=== PATIENT | female | born 1950 | race Caucasian/White ===

== ENCOUNTER 2020-03-11 14:19 | Outpatient (CLI) | payer MEDICARE, BC, SELFPAY ==
--- NOTE | 2020-03-11 14:25 | ECG_ITS ---
Measurements Intervals [place] Rate: 68 P: 24 VA: 198 QRS: 52 QRSD: 106 T: 30 QT: 378 QTc: 402 Interpretive Statements SINUS RHYTHM DELAYED PRECORDIAL R/S TRANSITION BORDERLINE ECG Electronically Signed On 03-11-2020 14:43:49 CDT by Roderick Moe D.O.
[2020-03-11 15:22] LABS: Anion Gap 9 mmol/L (8-16); Blood Urea Nitrogen 17 mg/dL (7-17); Calcium 9.5 mg/dL (8.4-10.2); Carbon Dioxide 26 mmol/L (22-30); Chloride 95 mmol/L (98-107); Estimated Glomerular Filt Rate > 60; Glucose 139 mg/dL (65-105); Sodium 130 mmol/L (137-145)
== END 2020-03-11 14:20 | disposition home or self-care (01) ==
LOC: ANHSURGERY 14:25
PROVIDERS: Anesthesiology; PCP Internal Medicine; Visit Provider Surgery Plastic and Reconstructive Surgery
DX: Z01.818 Encounter for other preprocedural examination (principal); E78.00 Pure hypercholesterolemia, unspecified; Z79.899 Other long term (current) drug therapy
CPT/HCPCS: 36415; 80048; 93005

== ENCOUNTER 2020-03-13 00:54 | Outpatient (CLI) | payer MEDICARE, BC, SELFPAY ==
[2020-03-13 18:41] LABS: SARS-CoV-2 RNA PCR Negative
== END 2020-03-13 00:55 | disposition home or self-care (01) ==
LOC: ANHCOVIDDT 00:54
PROVIDERS: PCP Internal Medicine; Visit Provider Surgery Plastic and Reconstructive Surgery
DX: Z01.812 Encounter for preprocedural laboratory examination (principal); Z20.828 Contact with and (suspected) exposure to other viral communicable diseases
CPT/HCPCS: 87635; C9803; U0003

== ENCOUNTER 2020-03-15 01:22 | Day surgery (SDC) | payer MEDICARE, BC, SELFPAY ==
[2020-03-05 14:26] VITALS: BMI 31.6
[2020-03-15] VITALS (7 sets, daily range): BP systolic 91–136; BP diastolic 46–66; PULSE 62–77; RESP 14–21; TEMP 36.3–36.5; O2SAT 96–100
[2020-03-15] MEDS: LACTATED RINGERS 1,000 ML 30 ML IV CONT ×2 (12:00→15:49)
--- NOTE | 2020-03-15 12:35 | WPDANESEPPF ---
Anes - Initial Pre Proc Eval Procedure: Operation Date: 03/15/20 13:30 Proposed Procedures p Excision Mass Right Upper Arm - Elie Anthony MD Date/Time: 03/15/20 12:35 Surgeon: Elie Anthony MD Pre Op Diagnosis: mass right upper arm Patient Data Age: 69 Gender: F Height: 5 ft 4 in Weight: 84.4 kg Last Vital Signs Temp 36.5 C 03/15/20 12:00 Pulse 64 03/15/20 12:00 Resp 18 03/15/20 12:00 BP 136/66 03/15/20 12:00 Pulse Ox 98 03/15/20 12:00 Allergies Allergy/AdvReac Type Severity Reaction Status Date / Time codeine Allergy Anaphylaxis Verified 03/11/20 15:32 morphine Allergy Anaphylaxis Verified 03/11/20 15:32 Penicillins Allergy Anaphylaxis Verified 03/11/20 15:32 Home Medications Medication Instructions Recorded Confirmed Type lansoprazole 30 mg capsule,delayed 30 mg PO DAILY cap 02/19/20 03/05/20 History release lisinopril 20 1 tablet PO DAILY tablet 02/19/20 03/05/20 History mg-hydrochlorothiazide 12.5 mg tablet metoprolol succinate 50 mg 50 tablet PO DAILY 02/19/20 03/05/20 History tablet,extended release 24 hr simvastatin 40 mg tablet 40 mg PO HS tablet 02/19/20 03/05/20 History docusate sodium 100 mg capsule 100 mg PO BID 7 Days #14 cap 03/11/20 Rx ondansetron HCl 4 mg tablet 4 mg PO Q6H PRN #30 tablet 03/11/20 Rx tramadol 50 mg tablet 50 mg PO Q6H PRN #15 tablet 03/13/20 03/13/20 Rx Laboratory Tests 03/15/20 11:53 Sodium Pending Potassium Pending Chloride Pending Carbon Dioxide Pending Anion Gap Pending BUN Pending Creatinine Pending Estim Creat Clear Calc Pending Estimated GFR Pending Glucose Pending Calcium Pending Patient hx anesthesia problems: none Family hx anesthesia problems: none PMFSH Past Medical History Medical History (Updated 03/15/20 @ 12:36 by Power Lilly MD) COPD (chronic obstructive pulmonary disease) GERD (gastroesophageal reflux disease) History of colon cancer 1999 Hyperlipidemia Hypertension WILBER (obstructive sleep apnea) Parathyroid disease surgery - 2002 Surgical History Surgical History History of cholecystectomy 1985 Social History Social History Smoking status: Current every day smoker Tobacco type: cigarettes Additional smoking assessment comments: 1PK/DAY/SINCE AGE 16 Alcohol intake: never Substance use: never Living arrangements: alone Spiritual care concerns: No Anes - Eval Final PreProcedure Day of Procedure 03/15/20 12:35 Patient weight: obese Heart: regular rate and rhythm Lungs: decreased breath sounds Airway: Mallampati scale class II Neurological: alert and oriented Last oral intake: >/= 8 hours ASA classification: III Emergent: no Anesthetic plan: proceed Anesthesia type and monitoring: general LMA and standard monitoring Informed Consent: The patient's anesthetic plan and its attendant risks and benefits were discussed with the patient/family/POA. Questions were solicited and answers provided to the satisfaction of the patient/family/POA.
[2020-03-15 12:37] LABS: Anion Gap 6 mmol/L (8-16); Blood Urea Nitrogen 16 mg/dL (7-17); Calcium 9.1 mg/dL (8.4-10.2); Carbon Dioxide 27 mmol/L (22-30); Chloride 99 mmol/L (98-107); Estimated CRCL calculation 61 ml/min; Estimated Glomerular Filt Rate > 60; Glucose 110 mg/dL (65-105); Potassium 4.3 mmol/L (3.4-5.0); Sodium 132 mmol/L (137-145)
--- NOTE | 2020-03-15 14:40 | WPDHPUPDATE1 ---
History and Physical Update Update Date/Time: 03/15/20 14:40 History and Physical has been reviewed, including an updated exam of the patient. There are NO changes in the patient's condition. Risks, benefits, and alternatives have been discussed and questions answered. Patient agrees to proceed with procedure.
--- NOTE | 2020-03-15 14:46 | SUR.PREOP ---
called pt's son Al and left message to inform him that Dr Mills is running an hour behind
--- NOTE | 2020-03-15 15:00 | PM.PROC ---
Procedure Note - Detailed Date of procedure: 03/15/20 Pre-op diagnosis: mass right upper arm Post-op diagnosis: same Procedure performed: 1. Mass excision right upper arm intramuscular 4.3 cm. Description of procedure: patient was marked in the preoperative holding area with her verification. She understands this may be an intramuscular mass. She understands the risks of injury to blood vessels, nerves, and other structures. This could lead to permanent disability of the right arm even loss of arm. All questions answered to her satisfaction and consent obtained. She was taken to the operating room placed supine on the operating table. Anesthesia provided by anesthesiology and prepped and draped in a standard sterile fashion. Surgical time-out was taken. 1% lidocaine and 0.25% Marcaine with epinephrine was used anesthetize locally. A 15 blade used to make an incision over the mass. Dissection was continued down to this was identified. This was intramuscular. Fibers were split; however, not cut and entire lipoma removed. I closed with 3-0 Monocryl followed by running subcuticular 4-0 Monocryl and tissue glue. A dressing was placed. She tolerated well. Anesthesia: GLMA Surgeon: Elie Anthony MD Estimated blood loss (mL): 2 Drains: No Packing: No Pathology: yes Complications: No immediate complications Condition: stable Disposition: PACU Findings: Intramuscular Lipoma
[2020-03-15] MEDS: CLINDAMYCIN 900 MG/NS 50 ML 900 MG/50 ML PIGGYBACK 50 MG IVPB (15:08)
[2020-03-15] MEDS: LIDO 1%/EPINEPHRINE 1:100,000 20 ML VIAL INFILTRATE (15:39)
== END 2020-03-15 17:24 | disposition home or self-care (01) ==
PROVIDERS: PCP Internal Medicine; Visit Provider Surgery Plastic and Reconstructive Surgery
PROC: (CPT 24076; principal; 2020-03-15 13:30)
DX: D17.9 Benign lipomatous neoplasm, unspecified (principal); J44.9 Chronic obstructive pulmonary disease, unspecified; K21.9 Gastro-esophageal reflux disease without esophagitis; I10 Essential (primary) hypertension; G47.33 Obstructive sleep apnea (adult) (pediatric); F17.210 Nicotine dependence, cigarettes, uncomplicated; Z85.038 Personal history of other malignant neoplasm of large intestine; Z79.899 Other long term (current) drug therapy
CPT/HCPCS: 24076; 36415; 80048; 88304; J1100; J2250; J2405; J2704; J3010; J7120